=== PATIENT | male | born 1985 | race Caucasian/White ===

== ENCOUNTER → 2019-11-08 | Outpatient (CLI) | payer SELFPAY | LOC: M OUTALCOH 08:09 | PROVIDERS: ATTEND Psychiatry & Neurology Addiction Medicine | DX: Z13.39 Encounter for screening examination for other mental health and behavioral disorders (principal); F10.10 Alcohol abuse, uncomplicated ==

== ENCOUNTER 2019-12-07 13:00 | Outpatient (RCR) | payer SELFPAY | END 2019-12-10 | LOC: M OUTALCOH 13:00 | PROVIDERS: ATTEND Psychiatry & Neurology Addiction Medicine | DX: F10.20 Alcohol dependence, uncomplicated (principal); F17.200 Nicotine dependence, unspecified, uncomplicated ==

== ENCOUNTER 2019-12-16 14:43 | Outpatient (RCR) | payer SELFPAY | END 2020-01-10 | LOC: M OUTALCOH 14:43 | PROVIDERS: ATTEND Psychiatry & Neurology Psychiatry | DX: F10.20 Alcohol dependence, uncomplicated (principal); F17.200 Nicotine dependence, unspecified, uncomplicated ==